=== PATIENT | female | born 1995 | race Caucasian/White ===

== ENCOUNTER 2017-03-05 05:43 | Day surgery (SDC) | payer OTHER ==
[~2017-03-05] VITALS: Ht 165.1 cm; Wt 63.5 kg
[2017-03-05] VITALS (10 sets, daily range): BP systolic 94–138; BP diastolic 50–63; PULSE 61–84; RESP 16–25; Ht 165.1 cm; Wt 63.5 kg
[2017-03-05] MEDS ORDERED: LIDOCAINE 1%/EPI 30 ML INJ ONE (07:04)
[2017-03-05] MEDS ORDERED: OXYMETAZOLINE 0.05% 15 ML NAS SPRAY NASAL ONE (07:04)
--- NOTE | 2017-03-05 07:26 | HPN ---
Date/Time of Note Date/Time of Note DATE: 03/05/17 TIME: 07:26 Interval H&P Admission Note Pt. seen H&P reviewed: No system changes DEMARCUS AKERS MD Mar 05, 2017 07:26
--- NOTE | 2017-03-05 07:27 | SIPON ---
Date/Time of Note Date/Time of Note DATE: 03/05/17 TIME: 07:26 Operative Report Preoperative Diagnosis DNS, TH, nasal fx Postoperative Diagnosis same Operation/Procedure Performed Septoplasty, bilateral inferior turbinate modification, open reduction nasal fracture Surgeon see signature line promotions assistant n/a Anesthesia: general Estimated blood loss: 10 - 50 ml's Transfusion Required none Specimen septal bone Grafts/Implants none Complications none DEMARCUS AKERS MD Mar 05, 2017 07:27
[2017-03-05] MEDS ORDERED: FENTAnyl 50 MCG/ML VIAL ONE (07:36)
[2017-03-05] MEDS ORDERED: MIDAZOLAM 1 MG/ML 2 ML INJ ONE (07:37)
[2017-03-05] MEDS ORDERED: ONDANSETRON 4 MG INJ ONE (09:08)
[2017-03-05] MEDS ORDERED: LIDOCAINE 2% (SDV) 5 ML INJ ONE (09:08)
[2017-03-05] MEDS ORDERED: PROPOFOL 20 ML ONE (09:08)
[2017-03-05] MEDS ORDERED: ROCURONIUM 50 MG INJ ONE (09:08)
[2017-03-05] MEDS ORDERED: MEPERIDINE 25 MG INJ IV PRN (09:30)
[2017-03-05] MEDS ORDERED: ONDANSETRON 4 MG INJ IV PRN (09:30)
[2017-03-05] MEDS ORDERED: DIPHENHYDRAMINE 50 MG INJ IV PRN (09:30)
[2017-03-05] MEDS ORDERED: METOCLOPRAMIDE 10 MG INJ IV PRN (09:30)
[2017-03-05] MEDS ORDERED: FENTAnyl 50 MCG/ML VIAL IV PRN (09:30)
[2017-03-05] MEDS ORDERED: HYDROCODONE/APAP (5/325) TAB PO PRN (10:00)
[2017-03-05] MEDS ORDERED: HYDROCODONE/APAP (5/325) TAB ONE (10:18)
[2017-03-05] MEDS ORDERED: DEXTROSE 5%-LR 1,000 ML IV SCH (13:00)
--- NOTE | 2017-03-05 16:56 | OPR ---
DATE OF OPERATION: 03/05/2017 PREOPERATIVE DIAGNOSIS: Deviated septum, turbinate hypertrophy, nasal pressure. POSTOPERATIVE DIAGNOSIS: Deviated septum, turbinate hypertrophy, nasal pressure. PROCEDURE: Septoplasty, bilateral inferior turbinate modification. SURGEON: Srinath Condon MD ANESTHESIA: General anesthesia. COMPLICATIONS: None. ESTIMATED BLOOD LOSS: Minimal. PROCEDURE IN DETAIL: After consent was obtained, the patient brought to the operating room and plac ed supine position. General anesthesia was induced. The nose injected with 1% lidocaine 1:100,000 epinephrine and packed with Afrin soaked nasal gauze. After sufficient period of time had elapsed, patient was prepped and draped in standard fashion. Left-sided hemitransfixion incision was made. Bilateral mucoperichondrial flaps were elevated. The osteocartilaginous junction . High cuts were made in the ethmoid and the posterior bony deflection was removed. The cartilage was dis articulated from maxillary crest and crest deviation was removed using an osteotome, septum swung ba ck into the midline and fixated to the maxillary spine using a [id number] Vicryl suture. A cur led anterior caudal septum deviation was removed using a 15 blade. A small portion of the deviated cartilage posteriorly was removed using a 15 blade and placed posteriorly. At this point, any carti alison that had been removed was morselized and replaced. Septum was felt to be within the midline. The hemitransfixion incision was then closed using multiple chromic sutures. Whipstitch composed of plain gut was used to oppose septal flaps. A left-sided incision was made. A flap was created and a deformity was created. At this point, bilateral lateral osteotomies were creat ed, bringing the nasal bones back into midline. All incisions were then closed using multiple chrom ic sutures. The inferior turbinates were submucosally reduced, infractured and outfractured using a Solano. At this point, the airway was excellent. The nose was straight and rhinoplastic splint w as applied. The patient then awakened and transferred to recovery room in stable condition. Dictated By: SRINATH BELL/DEIDRE Conf#: [id number] DID#: [id number]
== END 2017-03-05 11:00 | disposition home or self-care (01) ==
LOC: SDS 05:43
PROVIDERS: ATTEND Otolaryngology
DX: J34.2 Deviated nasal septum (principal)
CPT/HCPCS: 30140; 30520; 84703; 88300; J2250; J2405; J3010; Z7512; Z7610; J7121

== ENCOUNTER 2017-10-20 12:09 | Day surgery (SDC) | END 2017-10-20 16:25 | disposition home or self-care (01) ==